=== PATIENT | female | born 1995 | race Caucasian/White ===

== ENCOUNTER 2018-07-17 20:54 | Emergency (ER) | payer BC ==
[2018-07-17 21:11] VITALS: BP 124/81
[2018-07-17] MEDS ORDERED: Amoxicillin/Clavulanate TAB* 875 MG PO ONE ×2 (21:18→21:19)
--- NOTE | 2018-07-17 21:18 | UC ---
Bite Injury/Animal HPI - HPI Summary HPI Summary: The patient is a 23-year-old female who presents to the [facility] for evaluation of cat bites to her left hand. The cat's immunizations were up- to-date. 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 She is right handed. The bites occurred just prior to her arrival here. There are no lacerations but she does have multiple puncture wounds. - History of Current Complaint Chief Complaint: UCBiteInjury Stated Complaint: CAT BITE ON HAND Time Seen by Provider: 07/17/18 21:11 Hx Obtained From: Patient Hx Last Menstrual Period: IUD; June 21, 2018 Severity Currently: None Severity Initially: Moderate Pain Intensity: 0 Pain Scale Used: 0-10 Numeric Onset/Duration: Sudden Onset Type of Bite: Pet Has Animal Been Immunized?: Yes Character: Puncture Aggravating Factor(s): Nothing Alleviating Factor(s): Nothing Associated Signs And Symptoms: Positive: Swelling Animal Available for Observation: Yes Animal Control Notified: Yes Body - Head: 1 - pw 2 - pw 3 - pw 4 - pw 5 - pw - Allergies/Home Medications Allergies/Adverse Reactions: Allergies Allergy/AdvReac Type Severity Reaction Status Date / Time No Known Allergies Allergy Verified 07/17/18 21:10 PMH/Surg Hx/FS Hx/Imm Hx Previously Healthy: Yes - Surgical History Surgical History: None - Family History Known Family History: Positive: Hypertension - Social History Alcohol Use: Weekly Substance Use Type: Marijuana Smoking Status (MU): Never Smoked Tobacco Review of Systems Constitutional: Negative Skin: Negative Eyes: Negative ENT: Negative Respiratory: Negative Cardiovascular: Negative Gastrointestinal: Negative Genitourinary: Negative Motor: Negative Neurovascular: Negative Musculoskeletal: Negative Neurological: Negative Psychological: Negative Is Patient Immunocompromised?: No All Other Systems Reviewed And Are Negative: Yes Physical Exam Triage Information Reviewed: Yes Appearance: Well-Appearing, No Pain Distress, Well-Nourished Vital Signs: Initial Vital Signs Temp 98.6 F 07/17/18 21:04 Pulse 73 07/17/18 21:04 Resp 16 07/17/18 21:04 BP 124/81 08/28/18 21:04 Pulse Ox 100 07/17/18 21:04 Vital Signs Reviewed: Yes Eyes: Positive: Conjunctiva Clear ENT: Negative: Hearing grossly normal, Nasal congestion, Nasal drainage, Trismus , Muffled voice, Hoarse voice Neck: Positive: Supple, Nontender, No Lymphadenopathy Respiratory: Positive: Lungs clear, Normal breath sounds, No respiratory distress Cardiovascular: Positive: RRR, No Murmur Musculoskeletal: Positive: ROM Intact, Edema @ - slight edema surrounding PWs on left thumb Neurological: Positive: Alert Psychological Exam: Normal Skin Exam: Other - see image Bite Injury Course/Dx - Differential Dx/Diagnosis Provider Diagnoses: cat bite left hand Discharge - Sign-Out/Discharge Documenting (check all that apply): Patient Departure All imaging exams completed and their final reports reviewed: No Studies - Discharge Plan Condition: Stable Disposition: HOME Referrals: [facility] [Primary Care Provider] - - Billing Disposition and Condition Condition: STABLE Disposition: Home
== END 2018-07-17 21:40 | disposition home or self-care (01) ==
LOC: UCEAST 20:54
DX: S61.432A Puncture wound without foreign body of left hand, initial encounter (principal); W55.01XA Bitten by cat, initial encounter; Y92.9 Unspecified place or not applicable
CPT/HCPCS: 99202; A9270-GY; G0463

== ENCOUNTER 2019-03-02 20:58 | Emergency (ER) | payer BC ==
[2019-03-02 21:09] VITALS: BP 127/70
[2019-03-02] MEDS ORDERED: Amoxicillin/Clavulanate TAB* 875 MG PO ONE (21:17)
[2019-03-02] MEDS ORDERED: Tetan/Diph/Pertus SYR(Tdap)* 0.5 ML SYR(BOOSTRIX) use SYR IM ONE (21:18)
--- NOTE | 2019-03-02 21:19 | UC ---
Bite Injury/Animal HPI - HPI Summary HPI Summary: cat scratch to mid left forearm---this afternoon---has noted increased redness and swelling this evening---no streaking - History of Current Complaint Chief Complaint: UCSkin Stated Complaint: SKIN COMPLAINT Time Seen by Provider: 03/02/19 21:14 Hx Obtained From: Patient Hx Last Menstrual Period: 20 days ago ?: No Pain Intensity: 1 Pain Scale Used: 0-10 Numeric Onset/Duration: Sudden Onset, Lasting Hours Type of Bite: Animal - scratch Has Animal Been Immunized?: Yes Character: Abrasion/Laceration Aggravating Factor(s): Nothing Alleviating Factor(s): Nothing Associated Signs And Symptoms: Positive: Erythema Animal Available for Observation: Yes - Allergies/Home Medications Allergies/Adverse Reactions: Allergies Allergy/AdvReac Type Severity Reaction Status Date / Time No Known Allergies Allergy Verified 03/02/19 21:04 PMH/Surg Hx/FS Hx/Imm Hx Previously Healthy: Yes - Surgical History Surgical History: None - Family History Known Family History: Positive: Hypertension - Social History Occupation: Employed Full-time Lives: With Family Alcohol Use: Weekly Substance Use Type: Marijuana Smoking Status (MU): Never Smoked Tobacco Review of Systems All Other Systems Reviewed And Are Negative: Yes Constitutional: Positive: Negative Skin: Positive: Other - cat scratch mid left forearm---with swelling and erythema Eyes: Positive: Negative ENT: Positive: Negative Respiratory: Positive: Negative Cardiovascular: Positive: Negative Gastrointestinal: Positive: Negative Genitourinary: Positive: Negative Motor: Positive: Negative Neurovascular: Positive: Negative Musculoskeletal: Positive: Negative Neurological: Positive: Negative Psychological: Positive: Negative Is Patient Immunocompromised?: No Physical Exam Triage Information Reviewed: Yes Appearance: Well-Appearing, No Pain Distress, Well-Nourished Vital Signs: Initial Vital Signs Temp 99.3 F 03/02/19 21:04 Pulse 71 03/02/19 21:04 Resp 18 03/02/19 21:04 BP 127/70 03/02/19 21:04 Pulse Ox 100 03/02/19 21:04 Vital Signs Reviewed: Yes Eye Exam: Normal Eyes: Positive: Conjunctiva Clear ENT Exam: Normal ENT: Positive: Normal ENT inspection, Hearing grossly normal. Negative: Trismus , Muffled voice, Hoarse voice Dental Exam: Normal Neck exam: Normal Neck: Positive: Supple, Nontender Respiratory Exam: Normal Respiratory: Positive: No respiratory distress, No accessory muscle use Cardiovascular Exam: Normal Cardiovascular: Positive: RRR, Pulses Normal, Brisk Capillary Refill Musculoskeletal Exam: Normal Musculoskeletal: Positive: Strength Intact, ROM Intact, No Edema Neurological Exam: Normal Neurological: Positive: Alert, Muscle Tone Normal Psychological Exam: Normal Skin: Positive: Other - cat scratches mid left forearm Bite Injury Course/Dx - Course Course Of Treatment: up date tetanus, Augmentin, warm soaks, soap and water wash follow with pcp ( referral made ) prn - Differential Dx/Diagnosis Provider Diagnosis: Wound infection, Cat scratch of left forearm Discharge - Sign-Out/Discharge Documenting (check all that apply): Patient Departure All imaging exams completed and their final reports reviewed: No Studies - Discharge Plan Condition: Stable Disposition: HOME Prescriptions: Amoxicillin/Clavulanate TAB* [Augmentin TAB 875*] 875 mg PO BID #19 tab Patient Education Materials: Diphtheria/Acellular Pertussis/Tetanus Vaccine ( By injection), Wound Infection (ED), Warm Compress or Soak (ED) Referrals: Care [facility] [Outside] - If Needed - Billing Disposition and Condition Condition: STABLE Disposition: Home
== END 2019-03-02 21:36 | disposition home or self-care (01) ==
LOC: UCEAST 20:58
DX: S50.811A Abrasion of right forearm, initial encounter (principal); L08.9 Local infection of the skin and subcutaneous tissue, unspecified; W55.03XA Scratched by cat, initial encounter; Y92.9 Unspecified place or not applicable
CPT/HCPCS: 90471; 90715; 99211; A9270-GY; G0463